=== PATIENT | female | born 1985 | race African-American/Black ===

== ENCOUNTER → 2022-06-13 | Outpatient (REF) | LOC: M LAB 09:47 | PROVIDERS: ATTEND Nurse Practitioner Adult Health | DX: Z02.1 Encounter for pre-employment examination (principal) ==

== ENCOUNTER 2022-12-04 11:40 | Emergency (ER) | payer OTHER ==
[~2022-12-04] VITALS: Ht 177.8 cm; Wt 75.9 kg
[2022-12-04 11:41] VITALS: TEMP 97.8
[2022-12-04 15:38] VITALS: BP 138/85; O2SAT 100
== END 2022-12-04 15:43 | disposition home or self-care (01) ==
LOC: M ED 11:40
DX: M25.561 Pain in right knee (principal); W22.8XXA Striking against or struck by other objects, initial encounter; Y99.0 Civilian activity done for income or pay

== ENCOUNTER → 2023-02-06 | Outpatient (REF) | LOC: M EMP 13:48 | PROVIDERS: ATTEND Family Medicine | DX: Z11.52 Encounter for screening for COVID-19 (principal) ==

== ENCOUNTER 2023-03-27 19:56 | Emergency (ER) | payer OTHER ==
[~2023-03-27] VITALS: Ht 177.8 cm; Wt 75.4 kg
[2023-03-27 23:51] LABS: BASO % 0.3 % (0.0-1.0); HEMATOCRIT 35.1 % (36.0-47.0); HEMOGLOBIN 11.9 g/dl (12.0-15.5); LYMPH # 0.5 10^3/uL (1.5-5.0); LYMPH % 15.9 % (24.0-44.0); MEAN CORPUSCULAR HEMOGLOBIN 31.1 pg (27.0-33.0); MEAN CORPUSCULAR HGB CONC 33.9 g/dl (32.0-36.5); MEAN CORPUSCULAR VOLUME 91.6 fl (80.0-96.0); MONO # 0.3 10^3/uL (0.0-0.8); MONO % 7.7 % (2.0-8.0); NEUTROPHILS # 2.6 10^3/uL (1.5-8.5); NEUTROPHILS % 75.8 % (36.0-66.0); PLATELET COUNT, AUTOMATED 258 10^3/uL (150-450); RED BLOOD COUNT 3.83 10^6/uL (4.00-5.40); WHITE BLOOD COUNT 3.4 10^3/uL (4.0-10.0)
[2023-03-28 00:12] LABS: LIPASE 27 U/L (12-53)
[2023-03-28 00:14] LABS: ALBUMIN 3.4 G/DL (3.2-5.2); ALKALINE PHOSPHATASE 51 U/L (46-116); ALT/SGPT 17 U/L (7.0-40); AST/SGOT 14 U/L (<34); BILIRUBIN,DIRECT 0.6 MG/DL (<0.4); BILIRUBIN,TOTAL 1.7 MG/DL (0.3-1.2); BLOOD UREA NITROGEN 8 MG/DL (9-23); CALCIUM LEVEL 8.7 MG/DL (8.5-10.1); CARBON DIOXIDE LEVEL 24 MMOL/L (20-31); CHLORIDE LEVEL 105 MMOL/L (98-107); GLOMERULAR FILTRATION RATE > 60.0 (>60); GLUCOSE, FASTING 94 MG/DL (60-100); HCG, SERUM QUANTITATIVE < 2.6 MIU/ML (<4.2); POTASSIUM SERUM 3.7 MMOL/L (3.5-5.1); SODIUM LEVEL 138 MMOL/L (136-145); TOTAL PROTEIN 6.8 G/DL (5.7-8.2)
[2023-03-28] MEDS ORDERED: FAMOTIDINE 20MG/2ML VIAL IVP ONE (01:15)
[2023-03-28] MEDS ORDERED: NS 1,000 ML IV ONE (01:15)
[2023-03-28] MEDS ORDERED: ONDANSETRON 4MG 2ML VIAL IV ONE (01:15)
[2023-03-28] MEDS ORDERED: KETOROLAC 30 MG/ML 1ML VIAL IV ONE (01:30)
[2023-03-28] MEDS ORDERED: ONDA4TAB6 PO (02:53)
[2023-03-28 03:13] VITALS: BP 125/69; TEMP 98.2; O2SAT 100
== END 2023-03-28 03:10 | disposition home or self-care (01) ==
LOC: M ED 19:56
DX: K52.9 Noninfective gastroenteritis and colitis, unspecified (principal); F10.10 Alcohol abuse, uncomplicated; Z79.83 Long term (current) use of bisphosphonates
CPT/HCPCS: 76705; 80048; 80076; 83690; 84702; 85025; 87486; 87581; 87633; 87798; 96361; 96374; 96375; 99284; J1885; J2405; S0028